=== PATIENT | female | born 1950 | race Caucasian/White ===

== ENCOUNTER 2016-12-21 13:58 | Emergency (ER) | payer MEDICARE ==
--- NOTE | ~2016-12-21 | CR116 ---
[facility]. [facility] A Service of [facility] RADIOLOGY TEXT RESULTS PATIENT: ANNABEL SWIFT LOCATION: SED : 46 UNIT #: [id number] AGE: [address]: MEHRAN HUITRON SEX: F ORDER DR: [id number] [place] [id number] E MR#: [id number] Acc #: [id number] NAME: ANNABEL SWIFT : 1950 SEX: F STUDY DATE/TIME: 12/21/2016 14:45 UNIT: SED ROOM: STUDY DESCRIPTION: CR Finger 2 View Thumb Lt Attending Physician: Mehran Huitron A.P.R.N. Ordering Physician: Mehran Huitron A.P.R.N. Primary Care Physician: Primary Care Physician No MEDICAL IMAGING REPORT This report is preliminary unless electronic signature is present. EXAM Left thumb, 2 views COMPARISON None INDICATION 66-year-old female with left thumb erythema for 2 days. 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 Bones of the thumb are anatomically aligned. There is no evidence of acute fracture or osteomyelitis. No radiopaque foreign body. IMPRESSION 1. No acute fracture, dislocation or osteomyelitis of the left thumb. No radiopaque foreign body or subcutaneous gas. 2. Degenerative change of the lunate. Dictated by... Hernandez Alexandre M.D. THIS IS AN ELECTRONICALLY VERIFIED REPORT Hernandez Alexandre M.D. at 12/29/2016 10:30 PM MIGUEL/ricardo TD: 12/21/2016 22:26 JOB #: [id number] MEDICAL IMAGING REPORT Page 1 of 1
[2016-12-21] MEDS ORDERED: LIPITOR PO (14:02)
[2016-12-21] MEDS ORDERED: SINGULAIR PO (14:02)
[2016-12-21] MEDS ORDERED: TOPROL XL50 MG PO (14:03)
[2016-12-21] MEDS ORDERED: VITAMIN D10000 UNIT PO (14:03)
[2016-12-21] MEDS ORDERED: SYNTHROID125 PO (14:06)
== END 2016-12-21 16:35 | disposition home or self-care (01) ==
LOC: SED 13:58
DX: L03.012 Cellulitis of left finger (principal); I48.91 Unspecified atrial fibrillation; Z23 Encounter for immunization; Z79.899 Other long term (current) drug therapy
CPT/HCPCS: 73140; 90471; 90715; 96372; 99283